=== PATIENT | female | born 1960 | race Caucasian/White ===

== ENCOUNTER 2019-01-12 09:28 | Inpatient (IN) ==
--- NOTE | 2018-12-25 14:47 | PAT Medication Instructions ---
Medication Instructions Date of Service December 25, 2018 Home Medications atorvastatin 10 mg PO QAM cholecalciferol (vitamin D3) [Vitamin D3] 5,000 unit PO DAILY losartan 50 mg PO QAM multivitamin 1 cap PO DAILY rabeprazole [Aciphex] 20 mg PO QAM DO NOT take the morning of surgery cholecalciferol (vitamin D3) [Vitamin D3] 5,000 unit PO DAILY losartan 50 mg PO QAM multivitamin 1 cap PO DAILY Take morning of surgery With a small sip of water, OTHERWISE NOTHING TO EAT OR DRINK AFTER MIDNIGHT: atorvastatin 10 mg PO QAM rabeprazole [Aciphex] 20 mg PO QAM Other Notes If you have any questions please call us at [phone] or [phone] or [phone] or [phone]
--- NOTE | 2018-12-29 14:52 | Anesthesiology Consultation ---
Date of Service December 29, 2018 Assessment & Plan (1) Encounter for pre-operative examination: PCP: 12/31/18: "she could go to surgery with LBBB as long as no sx, however due to pt's family hx of heart issues and HTN we could do nuclear stress.. will then clear for surgery." Nuclear stress test done 01/08/19 with "Normal" study per perfusion imaging. Chart Review Chart Review: Acceptable Risk for Surgery and Patient seen in Pre Admission Testing Teaching & Discussion Pre-Anesthesia Teaching/Discussion Notes: Instructed NPO after midnight before surgery,except medications with 15 cc of water. Medication instructions provided according to the PAT guidelines. History Surgery Operation Date: 01/12/19 11:40 Proposed Procedures p Right Posterior Total Hip Arthroplasty - Bahman Price DO Height/Weight Height: 5 ft 6 in Weight: 89.6 kg Allergies Allergy/AdvReac Type Severity Reaction Status Date / Time No Known Allergies Allergy Verified 12/21/18 10:44 Medications Home Medications Medication Instructions Recorded Confirmed Last Taken atorvastatin 10 mg PO QAM 12/21/18 12/21/18 12/20/18 cholecalciferol (vitamin D3) 5,000 unit PO DAILY 12/21/18 12/21/18 Unknown [Vitamin D3] losartan 50 mg PO QAM 12/21/18 12/21/18 12/21/18 multivitamin 1 cap PO DAILY 12/21/18 12/21/18 Unknown rabeprazole [Aciphex] 20 mg PO QAM 12/21/18 12/21/18 12/21/18 Past Medical History Medical History Fatty liver GERD (gastroesophageal reflux disease) CONTROLLED Hyperlipidemia Hypertension LBBB (left bundle branch block) DATING BACK TO AT LEAST 01/2018 PER RECORDS Obesity Exercise / Class Metabolic Activity II 4-5 Yardwork/Stairs/Walk up hill Past Family History Family History Mother Family history of skin cancer Aunt Family history of breast cancer Family history of stomach cancer Other Family history of colon cancer in father Past Surgical History Surgical History History of bilateral salpingectomy History of section History of colonoscopy History of urologic surgery TENSION-FREE VAGINAL TAPE (TVT) PROCEDURE Past Anesthesia History No Family Hx of Anesthesia Complications and Other "Slow to wake" x 1 with salpingectomy (25+ years ago). No known hx reintubation. History of PONV No Hx of Motion Sickness and History of PONV (post op nausea x1 with salpingectomy) Social History Smoking Status: Never smoker Do You Dip or Chew Tobacco: No Hx Alcohol Use: Yes alcohol intake frequency: holidays/special occasions only Hx Substance Use: No substance use type: does not use Review of Systems Reflux controlled. Patient denies chest pain, shortness of breath, dyspnea on exertion, cough, wheezing, palpitations. Physical Exam Vital Signs VITALS BP 128/70 P 75 TEMP 97.8 SP02 97%RA RESP 18 PHYSICAL Full neck and c-spine range of motion. Full TMJ range of motion. TMD 3 finger breaths Mallampati Score 1 Dentition: intact, crown on left lower side Lungs: clear throughout to auscultation Cardiac: regular rate and rhythm, no murmurs noted Spine: normal Carotid arteries: negative bruit Extremities: no edema Testing Laboratory Results 12/29/18 15:12 12/29/18 15:12 12/29/18 12/29/18 15:12 15:12 PT 9.6 INR 0.9 APTT 25.0 Urine Color Yellow Urine Appearance Clear Urine pH 5.0 Ur Specific [place] 1.025 Urine Protein Negative Urine Glucose (UA) 1+ H Urine Ketones Negative Urine Nitrite Negative Ur Leukocyte Esterase Negative 12/29/18 HGBA1C 6.2% T&S O+Ab- Electrocardiogram Date: 12/29/18 NSR at 71bpm. LBBB. Chest X-Ray Date: 12/29/18 Findings: + NAD Stress Test Date: 01/08/19 Type: nuclear (Lexiscan) Lexiscan stress EKG un-interpretable for ischemia due to baseline LBBB. "Normal" study on perfusion imaging. EF 58%. No evidence of ischemic change or old myocardial infarct. "Normal" LV wall motion.
--- NOTE | 2018-12-29 15:36 | XRay Report ---
XR chest Pre-admission PA/Lat HISTORY: 58 years-old Female pat preoperative exam. No acute chest complaints COMPARISON: None available TECHNIQUE: PA and lateral views of the chest FINDINGS: Cardiac mediastinal and hilar silhouettes are within normal limits. There is no pneumothorax, pleural effusion, focal airspace consolidation or overt pulmonary edema. Degenerative changes of the shoulde rs and spine. IMPRESSION: No acute process. The above report was generated using voice recognition software. It may contain grammatical, syntax o r spelling errors. Electronically signed by: Mayank Mcknight M.D. 12/29/2018 3:35 PM
[2018-12-29 16:08] LABS: Appearance Urine Clear (Clear); Basophils # (auto) 0.05 K/uL (0-0.2); Basophils % (auto) 0.8 %; Bilirubin Urine Negative (Negative); Blood Urine Negative (Negative); Color Urine Yellow; Eosinophils # (auto) 0.12 K/uL (0-0.5); Eosinophils % (auto) 1.9 %; Glucose Urine UA 1+ (Negative); Hematocrit (blood only) 41.1 % (37-47); Hemoglobin 13.7 g/dL (12.0-16.0); Immature Granulocytes # (auto) 0.01 K/uL (0.00-0.02); Immature Granulocytes % (auto) 0.2 %; Ketones Urine Negative (Negative); Leukocyte Esterase Urine Negative (Negative); Lymphocytes # (auto) 2.29 K/uL (1.2-3.4); Lymphocytes % (auto) 36.5 %; Mean Corpuscular Hgb Conc 33.3 g/dL (32-36); Mean Corpuscular Volume 91.7 fL (80-100); Mean Platelet Volume 10.6 fL (7.4-10.4); Monocytes # (auto) 0.61 K/uL (0.11-0.59); Monocytes % (auto) 9.7 %; Neutrophils % (auto) 50.9 %; Nitrite Urine Negative (Negative); Platelet Count 243 K/uL (130-400); Protein Urine Negative (Negative); RDW Coefficient of Variation 12.2 % (11.5-14.5); RDW Standard Deviation 41.1 fL (36.4-46.3); Red Blood Count 4.48 M/uL (4.2-5.4); Specific Gravity Urine 1.025 (1.000-1.030); Urobilinogen Urine Negative (Negative); White Blood Count 6.28 K/uL (4.8-10.8)
[2018-12-29 16:15] LABS: BUN Creatinine Ratio 21.7 (10-20); Calcium 9.3 mg/dl (8.5-10.1); Creatinine Clr Calc Pharmacy 76.8 ml/min; Est GFR (African American) 81.7; Est GFR (Non-African American) 70.5; Potassium 4.1 mmol/L (3.5-5.1)
[2018-12-29 16:16] LABS: INR 0.9 (0.9-1.1); Partial Thromboplastin Ratio 0.9; Prothrombin Time 9.6 Seconds (9.0-12.0)
[2018-12-30 06:06] LABS: Estimated Average Glucose 131 mg/dl; Hemoglobin A1C 6.2 % (4.5-5.6)
--- NOTE | 2019-01-11 21:03 | History & Physical Report ---
Date of Service January 11, 2019 Assessment & Plan (1) Degenerative joint disease of right hip: I have indicated the patient for right total hip replacement. The risks, benefits and complications of surgery were explained to the patient which include but not limited to infection, acute blood loss, DVT/PE, injury to nerves, vessels, bone, soft tissue, arthrofibrosis, chronic pain, failure of the prosthesis, hip dislocation, leg length discrepancy, need for additional surgery, cardiac and pulmonary events and . The patient wished to proceed with surgery and informed consent was obtained at this time. We will plan for ASA BID post-operatively for DVT prophylaxis. Upon discharge the patient will be discharged home with home health services. Appropriate clearances by PCP were obtained. History of Present Illness Chief Complaint: Right hip pain/djd Primary Care Provider: jR Overton The patient is a 58 year old female who presents with complaints of severe Right hip pain and DJD. The patient has failed outpatient conservative treatments to this point which included NSAIDs, corticosteroid injection and a home exercise/walking program. The patient's pain and limited function have progressed to the point where they severely hinder their activities of daily living and they no longer tolerate exercise programs. They are requesting to proceed with total hip replacement surgery. Allergies Allergy/AdvReac Type Severity Reaction Status Date / Time No Known Allergies Allergy Verified 01/12/19 10:01 Home Medications Home Medications Medication Instructions Recorded Confirmed Type atorvastatin 10 mg PO QAM 12/21/18 12/21/18 History cholecalciferol (vitamin D3) 5,000 unit PO DAILY 12/21/18 01/12/19 History [Vitamin D3] losartan 50 mg PO QAM 12/21/18 12/21/18 History multivitamin 1 cap PO DAILY 12/21/18 01/12/19 History rabeprazole [Aciphex] 20 mg PO QAM 12/21/18 12/21/18 History Past Med/Surg History Medical History Fatty liver GERD (gastroesophageal reflux disease) CONTROLLED Hyperlipidemia Hypertension LBBB (left bundle branch block) DATING BACK TO AT LEAST 01/2018 PER RECORDS Obesity Surgical History History of bilateral salpingectomy History of section History of colonoscopy History of urologic surgery TENSION-FREE VAGINAL TAPE (TVT) PROCEDURE Family History Mother Family history of skin cancer Aunt Family history of breast cancer Family history of stomach cancer Other Family history of colon cancer in father Social History Preferred Language: Peruvian Communication Ability: Effective [employer] Required: No Beliefs That Will Affect Care: Congregational Congregational Beliefs: ZOROASTRIAN Current Living Situation: Family Other Information That Helps Us Care for You: No Feels Safe at Home: Yes Smoking Status: Never smoker Do You Dip or Chew Tobacco: No Hx Alcohol Use: Yes Hx Substance Use: No Review of Systems Review of Systems: All systems reviewed & are unremarkable except as noted in HPI & below Constitutional: as per Subjective / HPI Physical Exam Physical Exam: RLE NVSI +EHL/FHL/TA/GS SILT grossly, +2 DP pulse, compartments soft NT, limited painful ROM, antalgic gait. Constitutional: WD/WN, vitals as above Eyes: PERRL, conjunctivae normal, anicteric sclerae ENMT: external ear and nose normal, oropharynx normal Neck: trachea midline, no thyromegaly Respiratory: normal respiratory effort, lungs clear to auscultation Cardiovascular: RRR, no murmur, no edema Gastrointestinal (Abdomen): normal bowel sounds, soft, nontender, no hepatosplenomegaly Musculoskeletal: no cyanosis or clubbing, extremities motor strength 5/5 Skin: no rashes, warm and dry Neurologic: patellar DTR's 2+ bilat, sensation intact Psychiatric: A+Ox3, euthymic affect Lymphatic: no cervical or axillary lymphadenopathy Results & Data Diagnostic Findings Multiple views of the hip demonstrates severe DJD with complete loss of the joint space. +osteophytes, +sclerosis, +subchondral cysts.
[~2019-01-12 09:28] MED LIST: ACETAMINOPHEN 500 MG TAB PO SCH; BUPIVACAINE 0.5 % 5 MG/1 ML PF 10ML VIAL ONE; CEFAZOLIN 2000MG 2,000 MG/15 ML SYR IV SCH; CeleBREX 200 MG CAP PO SCH; FAMOTIDINE 20 MG TAB PO SCH; LR 500ML BOLUS, THEN 15ML/HR IV SCH; METOCLOPRAMIDE HCL 10 MG TABLET PO SCH; MIDAZOLAM HCL 1 MG/ML 2ML VIAL ONE; TRANEXAMIC ACID 1,000 MG **IV Intra-op IV SCH; TRANEXAMIC ACID 1,000 MG **IV Pre-op IV SCH; dexAMETHasone 4 MG TAB PO SCH; fentaNYL citrate 100 MCG/2 ML VIAL ONE
[2019-01-12] MEDS ORDERED: MEPERIDINE HCL 25 MG/ML CARP IV PRN (10:19)
[2019-01-12] MEDS ORDERED: ATROPINE SULFATE 0.1 MG/ML 10ML SYR IV PRN (10:19)
[2019-01-12] MEDS ORDERED: PHENYLEPHRINE 100MCG/ML 5ML SYR IV PRN (10:19)
[2019-01-12] MEDS ORDERED: fentaNYL citrate 100 MCG/2 ML VIAL IV PRN (10:19)
[2019-01-12] MEDS ORDERED: ePHEDrine sulfate 50 MG/ML AMP IV PRN (10:19)
[2019-01-12] MEDS ORDERED: HYDROmorphone INJ 1 MG/ML SYRINGE IV PRN (10:19)
[2019-01-12] MEDS ORDERED: ONDANSETRON INJ 2 MG/ML 2 ML VIAL IV PRN ×2 (10:19→15:57)
[2019-01-12] MEDS ORDERED: LABETALOL HCL IV 5 MG/ML 20ML IV PRN (10:19)
[2019-01-12] MEDS ORDERED: BACITRACIN INJ 50,000 UNIT VIAL ONE (10:47)
[2019-01-12] MEDS ORDERED: ROPIVACAINE 0.5% HCL/PF 150 MG, BUPIVACAINE 0.5% MPF 30 ML, EPINEPHrine 30MG/30ML (OR U... INFIL SCH (11:15)
--- NOTE | 2019-01-12 11:33 | History & Physical Bridge Note ---
Date of Service January 12, 2019 History & Physical Bridge Note I have examined the patient, reviewed the History & Physical and in the interval since the performance of the History & Physical I have noted the following changes of clinical significance: no changes noted
[2019-01-12] MEDS ORDERED: ONDANSETRON INJ 2 MG/ML 2 ML VIAL ONE (13:05)
[2019-01-12] MEDS ORDERED: DEXAMETHASONE SOD INJ 4 MG/ML VIAL ONE (13:05)
[2019-01-12] MEDS ORDERED: PROPOFOL IV EMULSION 10 MG/ML 20 ML VIAL IV ONE (13:05)
--- NOTE | 2019-01-12 13:26 | Post Operative Brief Note ---
Immediate Post Op Note v1 Date of Surgery January 12, 2019 Pre & Post Diagnosis Operation Date: 01/12/19 11:40 Pre-Op Diagnosis: Right Hip Degenerative Joint Disease Post-Op Diagnosis: Right Hip Degenerative Joint Disease Procedure Operation Date: 01/12/19 11:40 Actual Procedures p Right Posterior Total Hip Arthroplasty(Right) - Bahman Price DO Surgeon Bahman Price DO Case Therapist Lee Mejia Estimated Blood Loss 75 Findings Consistent with Post-Op Diagnosis Fluids 1800 cc LR Specimens femoral head Anesthesia Type Spinal MAC Complications none Disposition Disposition: Recovery Room Overlapping Procedure I was present for: the critical portions of procedure. I was immediately available: during the entire case. Back up surgeon: was not required during procedure.
--- NOTE | 2019-01-12 13:44 | Operative Report ---
Post Operative Report Pre & Post Diagnosis Operation Date: 01/12/19 11:40 Pre-Op Diagnosis: Right Hip Degenerative Joint Disease Post-Op Diagnosis: Right Hip Degenerative Joint Disease Procedure Operation Date: 01/12/19 11:40 Actual Procedures p Right Posterior Total Hip Arthroplasty(Right) - Bahman Price DO Surgeon Bahman Price DO Airline Transport Pilot Lee Mejia Estimated Blood Loss 75 Findings Consistent with Post-Op Diagnosis Specimens femoral head Anesthesia Type Spinal MAC Complications none Disposition Disposition: Recovery Room Indications The patient is a 58-year-old female who presents with severe progressive right hip DJD who has failed outpatient conservative treatments. I indicated the patient for a total hip replacement and the risks and benefits were explained in detail which included but not limited to infection, bleeding, blood clot, damage to surrounding bone, nerves, vessels, soft tissue, hip dislocation, failure of the prosthesis, leg length discrepancy, need for additional surgery and . The patient agreed to proceed with replacement of the hip and informed consent was obtained. Appropriate clearances were obtained. Description of Procedure COMPONENTS USED: Amy [employer]omet hip system: Acetabulum size 50, femur size 10 reduce standard offset, femoral head 36+0, liner 5036, acetabular screw 35 mm 1. Following induction of adequate spinal anesthesia, the patient was transferred to the OR table and placed in lateral decubitus position with left hip down. The right hip was prepped and draped in the typical sterile fashion. A timeout was performed, patient identified and site stanton confirmed. Appropriate antibiotics were given. A standard posterolateral/Morales-Langenbeck incision was made. Subcutaneous tissue was sharply dissected. Electrocautery was utilized for hemostasis. The fascia was incised throughout the length of the wound and retracted with the Charnley retractor. The bursa was taken down and the short external rotators were identified. The piriformis was tagged with #1 Vicryl. The short external rotators and capsule were divided from the posterior aspect of the femur using electrocautery. The posterior capsule was tagged with #1 Vicryl. Both external rotators and posterior capsule were swept posterior and protected, along with protecting the sciatic nerve. The hip was dislocated by flexion and internally rotation in a controlled manner and exposure of the femoral neck was gained with an old-style Hohmann and a blunt cobra retractor. A femoral cutting guide was utilized for making the appropriate level femoral neck cut with reciprocating saw. The femoral head was removed, measured and reserved on the back table. Next, attention was turned to the acetabulum. A posterior and anterior offset retractor was placed to gain adequate exposure. Acetabular labrum as well as posterior capsule elements were removed using electrocautery and forceps. Fovea centralis was cleared of all soft tissue. Sequential reaming was performed starting at 42 mm and carried up to a 49 mm and decision was made to proceed with impaction of a 50 mm trabecular metal cup. This was impacted and held using a single 35 mm bone screw. The trial acetabular liner was placed at this time. Next, attention was turned to the proximal femur where a Bovie and pickup was used to further clear short external rotators from their insertion on the femur. Box osteotome and canal finder was used to gain access to the femoral canal and the lateral reamer on power was used to further open the proximal lateral canal. Sequentially rasping was carried up to a 10 which gave good fit and fill of the proximal femur. A trial reduction was carried out with a standard reduce offset femoral neck component a 36+0 mm femoral head. The trial reduction was stable in all degrees of rotation with no [id number] impingement. The hip was dislocated, trial components were removed and access to the acetabulum was re-established. The trial liner was removed and the cup was irrigated to ensure all debris was removed. The final acetabular liner was inserted and properly seated in the cup. Access to the femur was once more gained and the size 10 femoral stem with standard redo offset was impacted into position. The hip was once more assessed with the 36+0 mm femoral head. Stability was accessed and found to be excellent with equal leg lengths. The hip was dislocated for the last time and the final 36+0 ceramic femoral head was impacted in place and the hip was reduced. Range of motion was checked once again and found to be stable. A Betadine soak was performed. After 3 minutes, the hip was once more irrigated with copious sterile saline solution with bacitracin. The fabio-incisional soft tissue was injected utilizing [place] ortho mix which includes a combination of Ropivicaine 0.5% 150mg, Bupivicaine 0.5%/Epinephrine 1:200,000 30ml, Toradol 30mg, Dexamethasone 4mg, Ketamine 10mg, Clonidine 100mcg and NSS 30ml Orthomix solution. The piriformis, external rotators and capsule were repaired to the greater trochanter through bone tunnels using #5 FiberWire. The fascia was closed using #1 Vicryl, subcutaneous tissue was closed using 2-0 Vicryl, and skin was closed with 3-0 V-lock suture and Dermabond Prineo. Sterile dressings were applied which included philly, 4x4s and tegaderm adhesive dressing. The patient tolerated the procedure well and was transported to PACU in stable condition. Due to the complex nature of the procedure, the entire surgery was performed with the operational assistance of Lee Mejia PA-C. The materials assistant, under direct supervision, was involved in the actual performance of all aspects of the surgical procedure including patient positioning, hemostasis, tissue retraction, instrument management and wound closure. I attest to the content of the Intraoperative Record and any orders documented therein. Any exceptions are noted below.
--- NOTE | 2019-01-12 14:39 | Orthopedic Progress Note ---
Date of Service January 12, 2019 Assessment & Plan (1) Degenerative joint disease of right hip: Status post right total hip arthroplasty -Ancef x24 -DVT prophylaxis: SCDs, teds, ASA twice daily -Weight-bear as tolerated right lower extremity -Posterior hip precaution -PT/OT -Postop x-ray pending -A.m. lab -DC planning - Subjective Post Operative Progress Note Patient seen in pacu, comfortable, denies complaints, pain well controlled, no acute issues. Still feeling the effects of spinal anesthesia. Review of Systems Review of Systems: All systems reviewed & are unremarkable except as noted in HPI & below Constitutional: as per Subjective / HPI Physical Exam Physical Exam: Right lower extremity physical exam limited secondary to spinal anesthesia, +2 dorsalis pedis pulse, compartment soft nontender, dressing is clean dry and intact, abduction pillow in place. Constitutional: WD/WN, vitals as above Results & Data Vital Signs (Past 12 Hours) Vital Signs Temp Pulse Pulse Resp BP Pulse Ox 01/12/19 14:30 57 L 21 161/85 H 95 01/12/19 14:20 52 L 16 148/82 H 94 01/12/19 14:10 54 L 19 155/84 H 96 01/12/19 14:00 56 L 22 153/84 H 96 01/12/19 13:54 36.7 C 62 12 163/90 H 97 01/12/19 10:18 36.6 C 68 18 178/90 H 98
--- NOTE | 2019-01-12 14:57 | XRay Report ---
XR hip 1V RT w pelvis CLINICAL HISTORY: Postoperative evaluation. COMPARISON: None FINDINGS: Alignment of the total right hip arthroplasty is anatomic. There is no periprosthetic frac ture or unexpected radiopaque foreign body. Acetabular screw is in place. IMPRESSION: Expected findings following total right hip arthroplasty. Electronically signed by: Renny Kellogg M.D. 01/12/2019 2:56 PM
--- NOTE | 2019-01-12 15:23 | Anesthesiology Progress Note ---
Date of Service January 12, 2019 Anesthesia Post Procedure Vital Signs Vital Signs: Temp Pulse Pulse Resp BP Pulse Ox 01/12/19 15:20 60 17 152/89 H 96 01/12/19 15:10 36.5 C 62 17 153/87 H 95 01/12/19 15:00 65 21 147/82 H 94 01/12/19 14:50 58 L 16 153/78 H 96 01/12/19 14:40 59 L 21 154/83 H 96 01/12/19 14:30 57 L 21 161/85 H 95 01/12/19 14:20 52 L 16 148/82 H 94 01/12/19 14:10 54 L 19 155/84 H 96 01/12/19 14:00 56 L 22 153/84 H 96 01/12/19 13:54 36.7 C 62 12 163/90 H 97 01/12/19 10:18 36.6 C 68 18 178/90 H 98 Pain Intensity Right Hip: Pain Intensity: 2 Transfer of Care Handoff Completed per policy Notes Mental Status: alert / awake / arousable Patient Amnestic to Procedure: Yes Nausea / Vomiting: adequately controlled Pain: adequately controlled Airway Patency, RR, SpO2: stable & adequate BP & HR: stable & adequate Hydration State: stable & adequate Neuraxial Anesthesia: was administered and sensory block is resolving Anesthetic Complications: no major complications apparent and Pt Satisfied with anesthetic care
[2019-01-12] MEDS ORDERED: SODIUM CHLORIDE 0.9% 1000ML 1,000 ML IV SCH (15:57)
[2019-01-12] MEDS ORDERED: HYDROmorphone INJ 0.5 MG/0.5 ML SYR IV PRN (15:57)
[2019-01-12] MEDS ORDERED: NALOXONE HCL 0.4 MG/1 ML VIAL/CARP IV PRN (15:57)
[2019-01-12] MEDS ORDERED: METOCLOPRAMIDE HCL INJ 5 MG/ML 2 ML VIAL IV PRN (15:57)
[2019-01-12] MEDS ORDERED: MAGNESIUM HYDROXIDE SUSP 30 ML UDC PO PRN (15:57)
[2019-01-12] MEDS ORDERED: BISACODYL 10 MG SUPP PR PRN (15:57)
[2019-01-12] MEDS: KETOROLAC 30 MG/ML VIAL IV SCH ×2 (16:56→21:46)
[2019-01-12] MEDS: ACETAMINOPHEN 500 MG TAB PO SCH ×2 (16:56→21:46)
[2019-01-12] MEDS: CEFAZOLIN 2000MG 2,000 MG/15 ML SYR IV SCH (20:21)
[2019-01-12] MEDS: ASPIRIN 325 MG ECTAB PO SCH (20:21)
[2019-01-12] MEDS: DOCUSATE SODIUM 100 MG CAP PO SCH (20:21)
[2019-01-12] MEDS ORDERED: SENNA 8.6 MG TAB PO SCH (21:00)
[2019-01-13] MEDS: OXYCODONE HCL IR 5 MG TAB (IMMEDIATE RELEASE) PO PRN ×2 (01:26→14:22)
[2019-01-13] MEDS: CEFAZOLIN 2000MG 2,000 MG/15 ML SYR IV SCH (05:02)
[2019-01-13] MEDS: ACETAMINOPHEN 500 MG TAB PO SCH ×2 (05:02→13:20)
[2019-01-13] MEDS: KETOROLAC 30 MG/ML VIAL IV SCH ×2 (05:02→10:45)
[2019-01-13 05:53] LABS: Hematocrit (blood only) 35.3 % (37-47); Immature Granulocytes # (auto) 0.03 K/uL (0.00-0.02); Immature Granulocytes % (auto) 0.2 %; Lymphocytes # (auto) 0.96 K/uL (1.2-3.4); Lymphocytes % (auto) 7.8 %; Mean Corpuscular Volume 88.5 fL (80-100); Mean Platelet Volume 10.2 fL (7.4-10.4); Monocytes # (auto) 0.85 K/uL (0.11-0.59); Monocytes % (auto) 6.9 %; Neutrophils # (auto) 10.54 K/uL (1.4-6.5); Neutrophils % (auto) 85.1 %; Platelet Count 219 K/uL (130-400); Red Blood Count 3.99 M/uL (4.2-5.4); White Blood Count 12.38 K/uL (4.8-10.8)
[2019-01-13 06:21] LABS: BUN Creatinine Ratio 24.7 (10-20); Creatinine Clr Calc Pharmacy 93.2 ml/min; Est GFR (African American) 103.5; Est GFR (Non-African American) 89.3
--- NOTE | 2019-01-13 08:07 | Orthopedic Progress Note ---
Date of Service January 13, 2019 Assessment & Plan (1) Degenerative joint disease of right hip: Status post right total hip arthroplasty POD#1 -Ancef x24, then dc -DVT prophylaxis: SCDs, teds, ASA twice daily -Weight-bear as tolerated right lower extremity -Posterior hip precautions -PT/OT -A.m. labs - hgb 12.0 -DC planning - Home with HH upon dc - Subjective POD 1 s/p Right PRAKASH Pt sitting up in chair at bedside. Awake, alert. Mild soreness in the operative hip. Otherwise, pain controlled. Denies SOB,CP,LH, N/V. Hoping to go home today. Review of Systems Review of Systems: All systems reviewed & are unremarkable except as noted in HPI & below Constitutional: as per Subjective / HPI Physical Exam Physical Exam: Dressings C/D/I. Thigh soft, NT. Calves soft, NT. NV intact. Hip located. Results & Data Vital Signs (Past 12 Hours) Vital Signs Temp Pulse Resp BP Pulse Ox 01/13/19 07:00 36.6 C 62 16 143/72 H 97 01/13/19 03:13 36.5 C 73 18 157/81 H 98 01/12/19 23:12 36.7 C 58 L 18 132/78 95 Laboratory Results Laboratory Results WBC 12.38 K/uL (4.8-10.8) H 01/13/19 05:35 RBC 3.99 M/uL (4.2-5.4) L 01/13/19 05:35 Hgb 12.0 g/dL (12.0-16.0) 01/13/19 05:35 Hct 35.3 % (37-47) L 01/13/19 05:35 MCV 88.5 fL (80-100) 01/13/19 05:35 MCH 30.1 pg (25-34) 01/13/19 05:35 MCHC 34.0 g/dL (32-36) 01/13/19 05:35 RDW Std Deviation 39.0 fL (36.4-46.3) 01/13/19 05:35 RDW Coeff of Rhonda 12.0 % (11.5-14.5) 01/13/19 05:35 Plt Count 219 K/uL (130-400) 01/13/19 05:35 MPV 10.2 fL (7.4-10.4) 01/13/19 05:35 Immature Gran % (Auto) 0.2 % 01/13/19 05:35 Neut % (Auto) 85.1 % 01/13/19 05:35 Lymph % (Auto) 7.8 % 01/13/19 05:35 Pender % (Auto) 6.9 % 01/13/19 05:35 Eos % (Auto) 0.0 % 01/13/19 05:35 Baso % (Auto) 0.0 % 01/13/19 05:35 Immature Gran # (Auto) 0.03 K/uL (0.00-0.02) H 01/13/19 05:35 Neut # (Auto) 10.54 K/uL (1.4-6.5) H 01/13/19 05:35 Lymph # (Auto) 0.96 K/uL (1.2-3.4) L 01/13/19 05:35 Pender # (Auto) 0.85 K/uL (0.11-0.59) H 01/13/19 05:35 Eos # (Auto) 0.00 K/uL (0-0.5) 01/13/19 05:35 Baso # (Auto) 0.00 K/uL (0-0.2) 01/13/19 05:35 PT 9.6 Seconds (9.0-12.0) 12/29/18 15:12 INR 0.9 (0.9-1.1) 12/29/18 15:12 APTT 25.0 Seconds (21.0-31.0) 12/29/18 15:12 PTT Ratio 0.9 12/29/18 15:12 Sodium 138 mmol/L (136-145) 01/13/19 05:35 Potassium 4.0 mmol/L (3.5-5.1) 01/13/19 05:35 Chloride 104 mmol/L (98-107) 01/13/19 05:35 Carbon Dioxide 25 mmol/L (21-32) 01/13/19 05:35 Anion Gap 9.0 (3-11) 01/13/19 05:35 BUN 18 mg/dl (7-18) 01/13/19 05:35 Creatinine 0.74 mg/dl (0.6-1.2) 01/13/19 05:35 Est Cr Clr Drug Dosing 93.2 ml/min 01/13/19 05:35 Est GFR ( Amer) 103.5 01/13/19 05:35 Est GFR (Non-Af Amer) 89.3 01/13/19 05:35 BUN/Creatinine Ratio 24.7 (10-20) H 01/13/19 05:35 Glucose 158 mg/dl (70-99) H 01/13/19 05:35 Estimat Average Glucose 131 mg/dl 12/29/18 15:12 Hemoglobin A1c 6.2 % (4.5-5.6) H 12/29/18 15:12 Calcium 9.0 mg/dl (8.5-10.1) 01/13/19 05:35 Albumin 4.0 gm/dl (3.4-5.0) 12/29/18 15:12 Urine Color Yellow 12/29/18 15:12 Urine Appearance Clear (Clear) 12/29/18 15:12 Urine pH 5.0 (4.5-7.5) 12/29/18 15:12 Ur Specific [place] 1.025 (1.000-1.030) 12/29/18 15:12 Urine Protein Negative (Negative) 12/29/18 15:12 Urine Glucose (UA) 1+ (Negative) H 12/29/18 15:12 Urine Ketones Negative (Negative) 12/29/18 15:12 Urine Blood Negative (Negative) 12/29/18 15:12 Urine Nitrite Negative (Negative) 12/29/18 15:12 Urine Bilirubin Negative (Negative) 12/29/18 15:12 Urine Urobilinogen Negative (Negative) 12/29/18 15:12 Ur Leukocyte Esterase Negative (Negative) 12/29/18 15:12 Blood Type O Positive 12/29/18 15:12 Antibody Screen NEGATIVE 12/29/18 15:12
--- NOTE | 2019-01-13 08:16 | Anesthesiology Progress Note ---
Date of Service January 13, 2019 Anesthesia Post Procedure Vital Signs Vital Signs: Temp Pulse Pulse Resp BP BP Pulse Ox 01/13/19 07:00 36.6 C 62 16 143/72 H 97 01/13/19 03:13 36.5 C 73 18 157/81 H 98 01/12/19 23:12 36.7 C 58 L 18 132/78 95 01/12/19 18:50 36.5 C 69 17 168/83 H 96 01/12/19 17:46 36.7 C 68 18 161/84 H 96 01/12/19 16:42 36.5 C 72 16 150/74 H 97 01/12/19 16:12 36.3 C L 58 L 16 174/86 H 97 01/12/19 15:30 58 L 16 150/87 H 96 01/12/19 15:20 60 17 152/89 H 96 01/12/19 15:10 36.5 C 62 17 153/87 H 95 01/12/19 15:00 65 21 147/82 H 94 01/12/19 14:50 58 L 16 153/78 H 96 01/12/19 14:40 59 L 21 154/83 H 96 01/12/19 14:30 57 L 21 161/85 H 95 01/12/19 14:20 52 L 16 148/82 H 94 01/12/19 14:10 54 L 19 155/84 H 96 01/12/19 14:00 56 L 22 153/84 H 96 01/12/19 13:54 36.7 C 62 12 163/90 H 97 01/12/19 10:18 36.6 C 68 18 178/90 H 98 Pain Intensity Right Hip: Pain Intensity: 2 Notes Mental Status: alert / awake / arousable and participated in evaluation Patient Amnestic to Procedure: Yes Nausea / Vomiting: adequately controlled Pain: adequately controlled Airway Patency, RR, SpO2: stable & adequate BP & HR: stable & adequate Hydration State: stable & adequate Neuraxial Anesthesia: was administered and sensory block resolved Anesthetic Complications: no major complications apparent
[2019-01-13] MEDS: DOCUSATE SODIUM 100 MG CAP PO SCH (08:44)
[2019-01-13] MEDS: ASPIRIN 325 MG ECTAB PO SCH (08:45)
[2019-01-13] MEDS ORDERED: ATORVASTATIN 10 MG TAB PO SCH (09:00)
[2019-01-13] MEDS ORDERED: PANTOprazole 40 MG TAB PO SCH (09:00)
[2019-01-13] MEDS ORDERED: MULTIVITAMIN TAB PO SCH (09:00)
[2019-01-13] MEDS ORDERED: LOSARTAN POTASSIUM 50 MG TAB PO SCH (09:00)
[2019-01-13] MEDS ORDERED: CeleBREX 200 MG CAP PO SCH (21:00)
--- NOTE | 2019-01-16 11:33 | Discharge Summary ---
Date of Service January 16, 2019 Admission HPI Per Admitting Provider The patient is a 58 year old female who presents with complaints of severe Right hip pain and DJD. The patient has failed outpatient conservative treatments to this point which included NSAIDs, corticosteroid injection and a home exercise/walking program. The patient's pain and limited function have progressed to the point where they severely hinder their activities of daily living and they no longer tolerate exercise programs. They are requesting to proceed with total hip replacement surgery. Principal Diagnosis Right total hip replacement Discharge Exam RLE NVSI +EHL/FHL/TA/GS SILT grossly, +2 DP pulse, compartments soft NT, dressing cdi. Constitutional WD/WN, vitals as above Discharge Data Allergies Allergy/AdvReac Type Severity Reaction Status Date / Time No Known Allergies Allergy Verified 01/12/19 10:01 Consultations 01/13/19 08:00 Consult Case Management - Discharge Planning Routine Procedures Performed Operation Date: 01/12/19 11:40 Actual Procedures p Right Posterior Total Hip Arthroplasty(Right) - Bahman Price DO Hospital Course (1) Degenerative joint disease of right hip: The patient is a 58 -year-old female who presents with long standing history of severe right hip DJD and failed outpatient conservative treatments including NSAIDs, bracing, injections and home walking/exercise program. The patient's symptoms have progressed to the point where it has been difficult to perform even normal activities of daily living. I indicated the patient for a right total hip arthroplasty, the risks, benefits and complications of the procedure include but not limited to infection, bleeding, damage to bone, nerves, vessels, surrounding soft tissue, may develop blood clots, loss of function, leg length discrepancy, dislocation, failure of the components, loosening of the components, the need for additional surgery and . The patient wished to proceed with surgery at this time and informed consent was obtained. Hospital Course: On 01/12/19 the patient was taken to the operating room, adequate anesthesia administered and underwent a right total hip arthroplasty. The patient tolerated the procedure well and was taken to the PACU in stable condition. Post-operatively the patient was started on a DVT ppx medication and given appropriate IV antibiotics. Consults were placed to physical therapy, occupational therapy and case management. On POD#1, the patient did well overnight and their pain was well controlled. Labs were drawn and the Hgb was 12.0. The patient progressed well with PT. Dressings were changed at this time and the incision was clean, dry and intact. The patients hospital stay was relatively uneventful and they were deemed stable by the orthopedic team and consultants to be discharged home with HH on 01/13/19. Discharge Instructions: Upon discharge the patient may weight bear as tolerates through their operative extremity. They were instructed to keep the incision clean and dry at all times. The patient may shower but should not submerge the incision, avoid bathing, pools and hot tubes. The patient was given a script for pain medication and should take as instructed. The patient was given a script for DVT ppx ASA 325mg BID and should take as directed. The patient was instructed to not drive or travel for long distances until cleared to do so. If the patient develops any symptoms of fevers, chills, nausea, vomiting, increased redness, swelling, pain or drainage from the surgical site, they should notify the office and/or proceed to the nearest emergency room. The patient should follow up in 10-14 days after surgery for their routine post-operative follow-up appointment and should call the office to confirm the date and time. Status post right total hip arthroplasty POD#1 -Ancef x24, then dc -DVT prophylaxis: SCDs, teds, ASA twice daily -Weight-bear as tolerated right lower extremity -Posterior hip precautions -PT/OT -A.m. labs - hgb 12.0 -DC planning - Home with HH upon dc - Total Time Total Time Spent Total Time Spent (In Minutes): 60 minutes Total Time Includes: Examination of the Patient, Discharge Planning, Medication Reconciliation and Communication With Other Providers Discharge Plan Discharge Items Patient Disposition: Home - Home Health Services Reason For Visit: Unilateral Primary Osteoarthritis, Right Hip Discharge Diagnosis: Right total hip replacement Condition: Good Discharge Goals: Decrease discomfort, Improve function, Increase independence and Therapeutic intervention Activity: Per 'Additional Instructions' section Lifting: Wait until after follow-up appointment Bathing Comment: No bathing, pools or hot tubs Sexual Activity: Wait until after follow-up appointment Exercise/Sports: Wait until after follow-up appointment Driving/Machine Use Comment: No driving till cleared by your surgeon Weightbearing: Right weightbearing Non-emergency contact: Primary Care Provider and Surgeon Call non-emergency contact if: you have any medication questions, your symptoms worsen, your pain is not controlled, your pain is worsening, your pain is unusual for you, your pain is concerning for you, you have a fever, your temperature is above 101, your wound has increased redness, your wound has increased drainage and your wound pain has increased Follow-up/Referrals: Rj Overton [Primary Care Provider] - Diet: Regular Addtl Provider Instructions: ACTIVITY RECOMMENDATIONS: SELF CARE INSTRUCTIONS AFTER TOTAL HIP REPLACEMENT Until the incision and soft tissues around your hip have healed, there is a possibility that the hip prosthesis could dislocate. A. Observe the following precautions to prevent dislocation: 1. Don't bend your hip greater than 90 degrees. 2. Avoid crossing your legs or ankles while standing or lying. 3. Sit with your feet placed 6 inches apart. 4. When sitting, keep your knees below your hips. Sit on a firm surface, avoid deep, soft chairs and couches. Use an elevated toilet seat in the bathroom. 5. Don't bend over at the waist. Use a long handled shoehorn and a sock aid to help you put on your shoes and socks. A pantograph ii engraver can help you apple picking supervisor objects that are too high or too low to reach. 6. Keep car riding to a minimum for at least one month after surgery. B. Your balance may be shaky for a while. Use crutches or a walker until directed by your doctor. C. Use hand rails when walking on stairs. D. Wear low heeled shoes with non-slip soles. E. Be sure that your floors are free of things that could trip you - throw rugs, electrical cords, small objects. Avoid wet and waxed floors, especially with crutches and canes. F. Try to walk several times a day with rest periods between. G. Continue with all the exercises taught to you in the hospital. Again, make walking a part of your daily routine. SPECIAL CARE INSTRUCTIONS: VERY IMPORTANT TO READ AND REVIEW A. You may still be at risk for phlebitis and blood clots. 1. Wear surgical stockings (JUSTINA hose) for 2 weeks after surgery to improve circulation and reduce swelling. 2. Take Aspirin 325mg twice daily for 4 weeks or as directed by your doctor. This is your blood thinner. 3. High risk patients may be prescribed a stronger blood thinner if necessary. 4. If you are on Coumadin normally, your family doctor/garment sorter should monitor your blood work. Expect a phone call the day of or the day after bloodwork is drawn to adjust your dosage. B. You must take antibiotics before having dental work, bladder, bowel and other surgery. Your doctor will provide you with a permanent card to carry describing precautions. C. Call [facility] if you have a fever, redness or swelling around the incision, cloudy drainage from incision, or sudden increase in pain in your hip, not relieved by your regular pain medication. D. Please call the office at if you have any concerns or questions about your operation or recovery. * YOU MAY SHOWER, NO TUB BATHS UNTIL CLEARED BY YOUR DOCTOR. * WEAR JUSTINA HOSE 20 HOURS PER DAY FOR 2 WEEKS. * YOU SHOULD USE A WALKER OR CRUTCHES FOR 2-4 WEEKS. THIS WILL HELP PREVENT STRAIN ON YOUR HIP MUSCLE AND ALLOW IT TO HEAL PROPERLY. YOU MAY WEAN TO A CANE TOLERATED. * MOST PATIENTS WILL HAVE HOME NURSING FOR THERAPY. IF YOU DECIDE TO DO OUTPATIENT PHYSICAL THERAPY, PLEASE SCHEDULE THIS 3 TIMES PER WEEK. *DERMABOND Prineo- This is a mesh tape dressing that is covered with glue. It should remain in place until the incision is properly healed, usually 10-14 days. This dressing is designed to naturally slough off. You may trim the excess mesh tape as it peels off. Incision may be briefly wet in a shower. Dry immediately by blotting with a clean, dry towel. Do not bath or swim until instructed by your doctor. Do not scratch, rub, or pick at the dressing. Do not apply any topical ointments or lotions until dressing is completely removed and/or instructed by your doctor. There may be a small piece of suture material at one end of your incision. Do not pull or trim this. If it is bothersome or catching on clothing, you may cover it with a band-aid. FOLLOW UP VISIT: If appointment is not already scheduled: Please call [facility] to make a follow-up appointment for 2 weeks after your surgery at . Prescriptions: New acetaminophen [Tylenol Extra Strength] 500 mg Tablet 1,000 mg PO Q8 PRN (Reason: pain) Qty: 90 RF: 0 celecoxib [Celebrex] 200 mg Capsule 200 mg PO BID PRN (Reason: pain) Qty: 28 RF: 0 aspirin 325 mg Tablet,Delayed Release (Dr/Ec) 325 mg PO BID Qty: 56 RF: 0 oxycodone 5 mg Tablet 5 mg PO Q6H MDD 6 tabs PRN (Reason: pain) Qty: 30 RF: 0 sennosides [Senokot] 8.6 mg Tablet 17.2 mg PO HS PRN (Reason: constipation) Qty: 28 RF: 0 Continued losartan 50 mg Tablet 50 mg PO QAM RF: 0 rabeprazole [Aciphex] 20 mg Tablet,Delayed Release (Dr/Ec) 20 mg PO QAM RF: 0 atorvastatin 10 mg Tablet 10 mg PO QAM RF: 0 multivitamin Capsule 1 cap PO DAILY RF: 0 cholecalciferol (vitamin D3) [Vitamin D3] 5,000 unit Tablet 5,000 unit PO DAILY RF: 0 Stand-Alone Forms: [employer], Opioid Pain Management [employer]/Other Patient Handouts: Surgery Prevent DVT After, Prediabetes, Diabetes Healthy Meals, Replacement Hip After Hospital, Replacement Total Hip Activity Discharge Orders: Discharge Order (Routine); Ordered 01/13/19 Ordered By: Bahman Price Admission Data Admit Date/Time: 01/12/19 13:52 Attending Provider: Bahman Price Admit Provider: Bahman Price Primary Care Provider: Rj Overton Service: Surgical Services Other Interventions: Discharge Summary Assessment (RN) Last Done: 01/13/19 09:28 DC Date/Time DO NOT enter until pt leaves facility: 01/13/19 15:02
== END 2019-01-13 15:02 | disposition home health service (06) | DRG 470 ==
LOC: ASU 09:28 → 3E 13:52